=== PATIENT | male | born 1975 | race Caucasian/White ===

== ENCOUNTER 2022-11-27 06:17 | Emergency (ER) | payer BC ==
[2022-11-27 06:30] VITALS: TEMP 97.5
[2022-11-27 06:48] LABS: Absolute Neutrophil Ct (ANC) 3.16 x10^3/uL (1.4-6.9); BASOPHIL % 0.5 % (0.0-0.4); Basophil (Absolute #) 0.03 x10^3/uL (0-0.4); Eosinophil % 2.8 % (0.00-5.0); Eosinophil (Absolute #) 0.16 x10^3/uL (0-0.5); Hematocrit 44.3 % (42-50); Hemoglobin 13.6 g/dL (12.5-18.0); IMMATURE GRAN # 0.02 x10^3u/L (0.00-0.03); IMMATURE GRAN % 0.4 % (0.00-0.4); Lymphocyte (Absolute #) 1.66 x10^3/uL (1.0-4.6); Lymphocytes % 29.4 % (24.0-44.0); Mean Cell Volume 89.5 fL (78-100); Mean Corpuscular Hemoglobin 27.5 pg (26-32); Mean Corpuscular Hgb Concent. 30.7 g/dL (32-36); Mean Platelet Volume 10.6 fL (7.5-11.0); Monocyte (Absolute #) 0.61 x10^3/uL (0.0-1.3); Monocytes % 10.8 % (0.0-12.0); Neutrophil % 56.1 % (36.0-66.0); Platelet Count 200 x10^3/uL (150-450); Red Blood Count 4.95 x10^6/uL (4.1-5.6); Red Cell Distribution Width 15.3 % (11.5-14.0); White Blood Count 5.6 x10^3/uL (4.0-10.5)
[2022-11-27 07:02] LABS: ALBUMIN 4.1 g/dL (3.5-5.0); ALKALINE PHOSPHATASE 83 U/L (38-126); ANION GAP 14.2 MEQ/L (5-15); BLOOD UREA NITROGEN 13 mg/dL (9-20); CHLORIDE 106 mmol/L (98-107); Calcium 8.7 mg/dL (8.4-10.2); Carbon Dioxide 26 mmol/L (22-30); Creatinine 1 0.97 mg/dL (0.66-1.25); EST GLOMERULAR FILTRATION RATE > 60.0 ML/MIN; Glucose 102 mg/dL (74-106); Potassium 3.9 mmol/L (3.5-5.1); SGOT/AST 26 U/L (17-59); SGPT/ALT 27 U/L (0-50); SODIUM 142 mmol/L (137-145)
--- NOTE | 2022-11-27 07:58 | ERPHSYRPT ---
- History of Present Illness Time Seen by Provider: 11/27/22 07:05 Historian: patient Exam Limitations: no limitations Patient Subjective Stated Complaint: pt states "I woke up around 0445 with my L shoulder hurting. I took a nitro at 0503 and it took the pain away. When I had my heart attack, I had muscle pain in between my shoulder blades so I just want to make sure that is not what is wrong" Triage Nursing Assessment: pt ambulatory to bed by self, pt alert and oriented x3, skin pwd, pt c/o 2/10 L shoulder pain when he woke up around 0445. pt took a nitro at 0503 and the pain is now completely resolved. pt has hx of SC in 2014 and has one cardiac stent. Tim Jim is his proofer black and white. pt anxious during triage. Physician History: This is a 47-year-old obese white male patient has a history of hypertension, GERD, hyperlipidemia and coronary artery disease with placement of a coronary artery stent in the past. He is on anticoagulation therapy. His proofer black and white is Dr. Tim Jim. He presents with left shoulder pain that woke the patient up at 445 this morning. He states he also felt warm but did not have a fever. His prior heart attack that prompted a cardiac catheterization with cardiac stent placement presented as severe, sudden pain between his scapulae. He does not have those symptoms today. He was feeling anxious and uneasy and therefore he came in for evaluation. The left shoulder pain completely resolved by the time I evaluated him. He now states he has some localized sensation described as a "poke" left anterior chest wall without radiation. He is not short of breath. He does not have a cough. He has no abdominal pain. Patient saw his proofer black and white last week. Timing/Duration: today Activities at Onset: none Quality: other (Initially left shoulder pain which was localized to the shoulder without radiation. That pain resolved and he has a localized anterior left chest wall sensation of a "poke") Location: other (Left shoulder (resolved) and left anterior chest wall "poke" sensation) Chest Pain Radiation: no radiation Severity of Pain-Max: none Severity of Pain-Current: none Modifying Factors: Improves With: nothing Associated Symptoms: denies symptoms Prior Chest Pain/Cardiac Workup: cardiac cath Nitro Today/Relief: 0.4 mg x 1, complete relief Aspirin Treatment Today: no aspirin today (Patient took his Plavix this morning) Allergies/Adverse Reactions: No Known Drug Allergies Allergy (Verified 11/27/22 06:20) Home Medications: Allopurinol 300 mg [Zyloprim 300 mg] 300 mg PO DAILY 11/27/22 [History] Aspirin 81 gm Chew [Baby Aspirin 81 mg Chew] 81 mg PO DAILY 11/27/22 [History] Atorvastatin Calcium [Lipitor] 80 mg PO HS 11/27/22 [History] Buspirone HCl 5 mg [Buspar 5 mg] 10 mg PO BID 11/27/22 [History] Clopidogrel Bisulfate [Clopidogrel] 75 mg PO DAILY 11/27/22 [History] Metformin HCl 500 mg [Glucophage 500 MG] 500 mg PO BID 11/27/22 [History] Metoprolol Tartrate 25 mg [Lopressor 25MG Tab] 25 mg PO BID 11/27/22 [History] Omeprazole 40 mg PO DAILY 11/27/22 [History] Zolpidem Tartrate 10 mg [Ambien 10 MG] 10 mg PO HS 11/27/22 [History] lisinopriL [Lisinopril] 10 mg PO BID 11/27/22 [History] Hx Tetanus, Diphtheria Vaccination/Date Given: No Hx Influenza Vaccination/Date Given: Yes Hx Pneumococcal Vaccination/Date Given: No Immunizations Up to Date: Yes Travel Risk - International Travel Have you traveled outside of the country in past 3 weeks: No - Coronavirus Screening Are you exhibiting any of the following symptoms?: No Close contact with a COVID-19 positive Pt in past 14-21 Days: No - Vaccine Status Have you recieved a Covid-19 vaccination: Yes [employer] [employer] - Vaccination Dates Date of 2cond Vaccination (if applicable): 2020 - Review of Systems Constitutional: No Symptoms Eyes: No Symptoms Ears, Nose, & Throat: No Symptoms Respiratory: No Symptoms Cardiac: Chest Pain Abdominal/Gastrointestinal: No Symptoms Genitourinary Symptoms: No Symptoms Musculoskeletal: No Symptoms Skin: No Symptoms Neurological: No Symptoms Psychological: No Symptoms Endocrine: No Symptoms Hematologic/Lymphatic: No Symptoms Immunological/Allergic: No Symptoms All Other Systems: Reviewed and Negative - Past Medical History Pertinent Past Medical History: Yes Neurological History: No Pertinent History ENT History: Cataracts Cardiac History: High Cholesterol, Hypertension, Myocardial Infarction (SC) Respiratory History: Sleep Apnea Endocrine Medical History: Diabetes Type II Musculoskeletal History: Fractures GI Medical History: Irritable Bowel, Ulcer History: No Pertinent History Psycho-Social History: Anxiety Other Medical History: wrist fx - Past Surgical History Past Surgical History: Yes Neuro Surgical History: No Pertinent History Cardiac: Cardiac Catheterization, Cardiac Stent Respiratory: No Pertinent History Gastrointestinal: No Pertinent History Genitourinary: No Pertinent History Musculoskeletal: No Pertinent History Male Surgical History: No Pertinent History - Social History Smoking Status: Never smoker Exposure to second hand smoke: No Drug Use: none Patient Lives Alone: Yes - Nursing Vital Signs Nursing Vital Signs: Initial Vital Signs Temperature 97.5 F 11/27/22 06:26 Pulse Rate 62 11/27/22 06:26 Respiratory Rate 21 11/27/22 06:26 Blood Pressure 155/87 11/27/22 06:26 O2 Sat by Pulse Oximetry 98 11/27/22 06:26 Pain Scale Pain Intensity 0 - Physical Exam General Appearance: no apparent distress, alert, anxiety, obese Eye Exam: PERRL/EOMI, eyes nml inspection Ears, Nose, Throat Exam: normal ENT inspection, moist mucous membranes Neck Exam: normal inspection, non-tender, supple, full range of motion Respiratory Exam: normal breath sounds, lungs clear, airway intact, No chest tenderness, No respiratory distress Cardiovascular Exam: regular rate/rhythm, normal heart sounds, normal peripheral pulses Gastrointestinal/Abdomen Exam: soft, normal bowel sounds, No tenderness Rectal Exam: not done Back Exam: normal inspection, normal range of motion, No CVA tenderness, No vertebral tenderness Extremity Exam: normal inspection, normal range of motion, pelvis stable Neurologic Exam: alert, oriented x 3, cooperative, microbiology supervisor II-XII nml as tested, normal mood/affect, nml cerebellar function, nml station & gait, sensation nml Skin Exam: normal color, warm, dry Lymphatic Exam: No adenopathy SpO2 Interpretation: normal SpO2: 98 O2 Delivery: Room Air - Course Nursing assessment & vital signs reviewed: Yes EKG Interpreted by Me: RATE (69), Sinus Rhythm, Left [place] Deviation (Borderline), NORMAL INTERVALS, NORMAL QRS, NORMAL ST-T, Other (No acute ischemic changes on today's twelve-lead EKG.) Ordered Tests: Active Orders 24 hr Category Date Time Status EKG-ER Only STAT Care 11/27/22 06:40 Active IV Insertion STAT Care 11/27/22 06:40 Active CHEST 1 VIEW (PORTABLE) Stat Exams 11/27/22 06:39 Completed CBC W DIFF Stat Lab 11/27/22 06:30 Completed CMP Stat Lab 11/27/22 06:30 Completed TROPONIN Q4H Lab 11/27/22 06:30 Completed TROPONIN Q4H Lab 11/27/22 09:33 Completed TROPONIN Q4H Lab 11/27/22 14:45 Ordered TROPONIN Q4H Lab 11/27/22 18:45 Ordered TROPONIN Q4H Lab 11/27/22 22:45 Ordered Lab/Rad Data: Laboratory Result Diagrams 11/27/22 06:30 11/27/22 06:30 Laboratory Results 11/27/22 11/27/22 11/27/22 Range/Units 09:33 06:30 06:30 WBC (4.0-10.5) x10^3/uL RBC (4.1-5.6) x10^6/uL Hgb (12.5-18.0) g/dL Hct (42-50) % MCV (78-100) fL MCH (26-32) pg MCHC (32-36) g/dL RDW (11.5-14.0) % Plt Count (150-450) x10^3/uL MPV (7.5-11.0) fL Gran % (36.0-66.0) % Immature Gran % (Auto) (0.00-0.4) % Nucleat RBC Rel Count (0.00-0.1) % Eos # (Auto) (0-0.5) x10^3/uL Immature Gran # (Auto) (0.00-0.03) x10^3u/L Absolute Lymphs (auto) (1.0-4.6) x10^3/uL Absolute Monos (auto) (0.0-1.3) x10^3/uL Absolute Nucleated RBC (0.00-0.01) x10^3u/L Lymphocytes % (24.0-44.0) % Monocytes % (0.0-12.0) % Eosinophils % (0.00-5.0) % Basophils % (0.0-0.4) % Absolute Granulocytes (1.4-6.9) x10^3/uL Basophils # (0-0.4) x10^3/uL Sodium 142 (137-145) mmol/L Potassium 3.9 (3.5-5.1) mmol/L Chloride 106 (98-107) mmol/L Carbon Dioxide 26 (22-30) mmol/L Anion Gap 14.2 (5-15) MEQ/L BUN 13 (9-20) mg/dL Creatinine 0.97 (0.66-1.25) mg/dL Estimated GFR > 60.0 ML/MIN Glucose 102 (74-106) mg/dL Calcium 8.7 (8.4-10.2) mg/dL Total Bilirubin 0.70 (0.2-1.3) mg/dL AST 26 (17-59) U/L ALT 27 (0-50) U/L Alkaline Phosphatase 83 (38-126) U/L Troponin I < 0.012 < 0.012 (0.000-0.034) ng/mL Serum Total Protein 7.0 (6.3-8.2) g/dL Albumin 4.1 (3.5-5.0) g/dL 11/27/22 Range/Units 06:30 WBC 5.6 (4.0-10.5) x10^3/uL RBC 4.95 (4.1-5.6) x10^6/uL Hgb 13.6 (12.5-18.0) g/dL Hct 44.3 (42-50) % MCV 89.5 (78-100) fL MCH 27.5 (26-32) pg MCHC 30.7 L (32-36) g/dL RDW 15.3 H (11.5-14.0) % Plt Count 200 (150-450) x10^3/uL MPV 10.6 (7.5-11.0) fL Gran % 56.1 (36.0-66.0) % Immature Gran % (Auto) 0.4 (0.00-0.4) % Nucleat RBC Rel Count 0.0 (0.00-0.1) % Eos # (Auto) 0.16 (0-0.5) x10^3/uL Immature Gran # (Auto) 0.02 (0.00-0.03) x10^3u/L Absolute Lymphs (auto) 1.66 (1.0-4.6) x10^3/uL Absolute Monos (auto) 0.61 (0.0-1.3) x10^3/uL Absolute Nucleated RBC 0.00 (0.00-0.01) x10^3u/L Lymphocytes % 29.4 (24.0-44.0) % Monocytes % 10.8 (0.0-12.0) % Eosinophils % 2.8 (0.00-5.0) % Basophils % 0.5 (0.0-0.4) % Absolute Granulocytes 3.16 (1.4-6.9) x10^3/uL Basophils # 0.03 (0-0.4) x10^3/uL Sodium (137-145) mmol/L Potassium (3.5-5.1) mmol/L Chloride (98-107) mmol/L Carbon Dioxide (22-30) mmol/L Anion Gap (5-15) MEQ/L BUN (9-20) mg/dL Creatinine (0.66-1.25) mg/dL Estimated GFR ML/MIN Glucose (74-106) mg/dL Calcium (8.4-10.2) mg/dL Total Bilirubin (0.2-1.3) mg/dL AST (17-59) U/L ALT (0-50) U/L Alkaline Phosphatase (38-126) U/L Troponin I (0.000-0.034) ng/mL Serum Total Protein (6.3-8.2) g/dL Albumin (3.5-5.0) g/dL - Progress Progress: improved, re-examined Air Movement: good Progress Note: 11/27/22 08:33 Chest x-ray was interpreted by me. There is no evidence of any acute cardiopulmonary process. This patient's medical issue is 1 of moderate complexity. Level of complexity in the work-up performed is based on review patient's past medical history, review of the patient's medication list, review the patient's drug allergy list, history of present illness and physical findings on examination. The work-up in this patient includes a chest x-ray, twelve-lead EKG, troponin level, CBC and CMP. I reviewed and interpreted the work-up performed. There are no acute ca rdiopulmonary processes on chest x-ray. Given the patient's cardiac history, we will repeat a 3-hour troponin. If this level is normal, the patient will be discharged home with instructions to follow-up with his proofer black and white today to make arrangements for follow-up appointment for further evaluation and management. Patient was told to continue his medications as prescribed. 11/27/22 10:45 2 sets of troponin levels are negative. Patient is being discharged to home. He has no chest pain at this time. Blood Culture(s) Obtained: No Antibiotics given: No Counseled pt/family regarding: lab results, diagnosis, need for follow-up, rad results Medical Desision Making - Independent Historian Additional History obtained from: Family - Diagnostic Testing Diagnostic test were ordered, analyzed, and reviewed by me: Yes Radiological Interpretation: Interpreted by me - Risk of complications Low Risk: Low risk of morbidity from additional dx testing or treatment - Departure Departure Disposition: Home Clinical Impression: Shoulder pain Condition: Stable Critical Care Time: No Referrals: KRUNAL ALBRECHT MD [Primary Care Provider] - Follow up/PCP as directed Additional Instructions: Take your medications as prescribed. Call your proofer black and white today to make arrangements for follow-up appointment for further evaluation management.
--- NOTE | 2022-11-27 09:12 | XRAY ---
Indication: Chest pain. Comparison: None Portable apical lordotic chest demonstrates normal heart and lungs. Bony thorax intact.
[2022-11-27 10:47] VITALS: O2SAT 98
[2022-11-27 10:50] VITALS: BP 150/93; PULSE 67; RESP 13
== END 2022-11-27 11:03 | disposition home or self-care (01) ==
LOC: ED 06:17
DX: M25.512 Pain in left shoulder (principal); R07.9 Chest pain, unspecified; I10 Essential (primary) hypertension; E78.5 Hyperlipidemia, unspecified; E11.9 Type 2 diabetes mellitus without complications; Z79.02 Long term (current) use of antithrombotics/antiplatelets; Z79.84 Long term (current) use of oral hypoglycemic drugs; Z79.899 Other long term (current) drug therapy
CPT/HCPCS: 36000; 36415; 71045; 80053; 84484; 85025; 93005; 99284

== ENCOUNTER 2023-04-06 19:43 | Emergency (ER) | payer BC ==
[2023-04-06 20:17] VITALS: TEMP 98.1
[2023-04-06 21:04] LABS: Absolute Neutrophil Ct (ANC) 6.33 x10^3/uL (1.4-6.9); BASOPHIL % 0.6 % (0.0-0.4); Basophil (Absolute #) 0.05 x10^3/uL (0-0.4); Eosinophil % 1.6 % (0.00-5.0); Eosinophil (Absolute #) 0.14 x10^3/uL (0-0.5); Hematocrit 48.2 % (42-50); Hemoglobin 14.7 g/dL (12.5-18.0); IMMATURE GRAN # 0.03 x10^3u/L (0.00-0.03); IMMATURE GRAN % 0.3 % (0.00-0.4); Lymphocyte (Absolute #) 1.55 x10^3/uL (1.0-4.6); Lymphocytes % 17.7 % (24.0-44.0); Mean Cell Volume 90.4 fL (78-100); Mean Corpuscular Hemoglobin 27.6 pg (26-32); Mean Corpuscular Hgb Concent. 30.5 g/dL (32-36); Mean Platelet Volume 10.5 fL (7.5-11.0); Monocyte (Absolute #) 0.66 x10^3/uL (0.0-1.3); Monocytes % 7.5 % (0.0-12.0); Neutrophil % 72.3 % (36.0-66.0); Platelet Count 241 x10^3/uL (150-450); Red Blood Count 5.33 x10^6/uL (4.1-5.6); White Blood Count 8.8 x10^3/uL (4.0-10.5)
[2023-04-06 21:20] LABS: ALBUMIN 4.5 g/dL (3.5-5.0); ANION GAP 13.2 MEQ/L (5-15); BILIRUBIN,TOTAL 0.8 mg/dL (0.2-1.3); Calcium 9.2 mg/dL (8.4-10.2); Creatinine 1 0.85 mg/dL (0.66-1.25); EST GLOMERULAR FILTRATION RATE 107.9 ML/MIN; Potassium 4.1 mmol/L (3.5-5.1); Total Protein 7.8 g/dL (6.3-8.2)
[2023-04-06 21:41] LABS: INFLUENZA A NEGATIVE (NEGATIVE); INFLUENZA B NEGATIVE (NEGATIVE); RESPIRATORY SYNCTIAL VIRUS NEGATIVE (NEGATIVE); SARS-CoV-2 Xpert Express NEGATIVE (NEGATIVE)
--- NOTE | 2023-04-06 21:43 | ERPHSYRPT ---
- History of Present Illness Time Seen by Provider: 04/06/23 19:47 Historian: patient Exam Limitations: no limitations Patient Subjective Stated Complaint: pt states "Since it feels like someone is pushing on my back when I move my L arm. I just feel "whoozy" when I stand up and move around." Triage Nursing Assessment: pt ambulatory to bed by self with steady gait, pt alert and oriented x3, skin pwd, pt c/o intermittent L arm pain and back pain, pt describes back pain where someone is poking in his L upper back, pt denies pain currently or any dizziness at this time. pain only occurs when patient moves his L arm up over his head per patient Physician History: 48-year-old male with history of coronary artery disease status post stenting, hypertension presented in the ER with chief complaint of off-and-on mid upper back for the last 3 to 4 days with radiation to anterior chest mild to moderate dull aching without any significant aggravating or relieving factors. Denies associated shortness of breath or palpitations. Patient reports he feels woozy when he stands up. Also reports some soreness in the left lower chest and left tricep area. Reports pain is different than the time he had CO 6 years ago. Denies any cough congestion, fever or chills. Aspirin Treatment Today: unknown Allergies/Adverse Reactions: No Known Drug Allergies Allergy (Verified 04/06/23 20:14) Home Medications: Allopurinol 300 mg [Zyloprim 300 mg] 300 mg PO DAILY 11/27/22 [History] Aspirin 81 gm Chew [Baby Aspirin 81 mg Chew] 81 mg PO DAILY 11/27/22 [History] Atorvastatin Calcium [Lipitor] 80 mg PO HS 11/27/22 [History] Buspirone HCl 5 mg [Buspar 5 mg] 10 mg PO BID 11/27/22 [History] Clopidogrel Bisulfate [Clopidogrel] 75 mg PO DAILY 11/27/22 [History] Metformin HCl 500 mg [Glucophage 500 MG] 500 mg PO BID 11/27/22 [History] Metoprolol Tartrate 25 mg [Lopressor 25MG Tab] 25 mg PO BID 11/27/22 [H istory] Omeprazole 40 mg PO DAILY 11/27/22 [History] Zolpidem Tartrate 10 mg [Ambien 10 MG] 10 mg PO HS 11/27/22 [History] lisinopriL [Lisinopril] 10 mg PO BID 11/27/22 [History] Hx Tetanus, Diphtheria Vaccination/Date Given: Yes Hx Influenza Vaccination/Date Given: Yes Hx Pneumococcal Vaccination/Date Given: No Immunizations Up to Date: Yes Travel Risk - International Travel Have you traveled outside of the country in past 3 weeks: No - Coronavirus Screening Are you exhibiting any of the following symptoms?: No Close contact with a COVID-19 positive Pt in past 14-21 Days: No - Vaccine Status Have you recieved a Covid-19 vaccination: Yes [employer] In[employer]: 5 Minutes - Vaccination Dates Date of 2cond Vaccination (if applicable): 2020 - Review of Systems Constitutional: No Symptoms Eyes: No Symptoms Ears, Nose, & Throat: No Symptoms Respiratory: No Symptoms Cardiac: Chest Pain Abdominal/Gastrointestinal: No Symptoms Genitourinary Symptoms: No Symptoms Musculoskeletal: Back Pain Skin: No Symptoms Psychological: No Symptoms Endocrine: No Symptoms Hematologic/Lymphatic: No Symptoms - Past Medical History Pertinent Past Medical History: Yes Neurological History: No Pertinent History ENT History: Cataracts Cardiac History: High Cholesterol, Hypertension, Myocardial Infarction (CO) Respiratory History: Sleep Apnea Endocrine Medical History: Diabetes Type II Musculoskeletal History: Fractures GI Medical History: Irritable Bowel, Ulcer History: No Pertinent History Psycho-Social History: Anxiety Other Medical History: wrist fx - Past Surgical History Past Surgical History: Yes Neuro Surgical History: No Pertinent History Cardiac: Cardiac Catheterization, Cardiac Stent Respiratory: No Pertinent History Gastrointestinal: No Pertinent History Genitourinary: No Pertinent History Musculoskeletal: No Pertinent History Male Surgical History: No Pertinent History - Social History Smoking Status: Never smoker Exposure to second hand smoke: No Drug Use: none Patient Lives Alone: Yes - Nursing Vital Signs Nursing Vital Signs: Initial Vital Signs Pulse Rate 71 04/06/23 20:16 Respiratory Rate 18 04/06/23 20:16 Blood Pressure 137/81 04/06/23 20:16 O2 Sat by Pulse Oximetry 94 L 04/06/23 20:16 Pain Scale Pain Intensity 0 - Physical Exam General Appearance: no apparent distress, alert Eye Exam: PERRL/EOMI Ears, Nose, Throat Exam: normal ENT inspection, TMs normal, pharynx normal, moist mucous membranes Neck Exam: normal inspection, non-tender, supple, full range of motion Respiratory Exam: normal breath sounds, lungs clear Cardiovascular Exam: regular rate/rhythm, normal heart sounds Gastrointestinal/Abdomen Exam: soft, normal bowel sounds, No tenderness Back Exam: normal inspection, normal range of motion Extremity Exam: normal inspection, normal range of motion Neurologic Exam: alert, oriented x 3, cooperative, portable power tool repairer II-XII nml as tested Skin Exam: normal color SpO2 Interpretation: normal SpO2: 94 O2 Delivery: Room Air - Course EKG Interpreted by Me: RATE ([id number]), Sinus Alen, NORMAL AXIS, NORMAL INTERVALS, NORMAL QRS Ordered Tests: Active Orders 24 hr Category Date Time Status Irrigation Flume Layer STAT Care 04/06/23 20:47 Completed EKG-ER Only STAT Care 04/06/23 20:46 Completed IV Insertion STAT Care 04/06/23 20:46 Completed Orthostatic Vital Signs STAT Care 04/06/23 20:47 Completed CHEST 1 VIEW (PORTABLE) Routine Exams 04/06/23 21:41 Taken CBC W DIFF Stat Lab 04/06/23 21:00 Completed CMP Stat Lab 04/06/23 21:00 Completed D-DIMER QUANTITATIVE Stat Lab 04/06/23 21:51 Completed NT PRO BNPII Stat Lab 04/06/23 21:00 Completed TROPONIN Q4H Lab 04/06/23 21:00 Completed TROPONIN Stat Lab 04/06/23 23:03 Completed Lab/Rad Data: Laboratory Result Diagrams 04/06/23 21:00 04/06/23 21:00 Laboratory Results 04/06/23 04/06/23 04/06/23 Range/Units 23:03 21:51 21:00 WBC (4.0-10.5) x10^3/uL RBC (4.1-5.6) x10^6/uL Hgb (12.5-18.0) g/dL Hct (42-50) % MCV (78-100) fL MCH (26-32) pg MCHC (32-36) g/dL RDW (11.5-14.0) % Plt Count (150-450) x10^3/uL MPV (7.5-11.0) fL Gran % (36.0-66.0) % Immature Gran % (Auto) (0.00-0.4) % Nucleat RBC Rel Count (0.00-0.1) % Eos # (Auto) (0-0.5) x10^3/uL Immature Gran # (Auto) (0.00-0.03) x10^3u/L Absolute Lymphs (auto) (1.0-4.6) x10^3/uL Absolute Monos (auto) (0.0-1.3) x10^3/uL Absolute Nucleated RBC (0.00-0.01) x10^3u/L Lymphocytes % (24.0-44.0) % Monocytes % (0.0-12.0) % Eosinophils % (0.00-5.0) % Basophils % (0.0-0.4) % Absolute Granulocytes (1.4-6.9) x10^3/uL Basophils # (0-0.4) x10^3/uL D-Dimer < 0.19 (0.0-0.50) mg/L Sodium (137-145) mmol/L Potassium (3.5-5.1) mmol/L Chloride (98-107) mmol/L Carbon Dioxide (22-30) mmol/L Anion Gap (5-15) MEQ/L BUN (9-20) mg/dL Creatinine (0.66-1.25) mg/dL Estimated GFR ML/MIN Glucose (74-106) mg/dL Calcium (8.4-10.2) mg/dL Total Bilirubin (0.2-1.3) mg/dL AST (17-59) U/L ALT (0-50) U/L Alkaline Phosphatase (38-126) U/L Troponin I < 0.012 (0.000-0.034) ng/mL NT-Pro-B Natriuret Pep (<300) pg/mL Serum Total Protein (6.3-8.2) g/dL Albumin (3.5-5.0) g/dL Influenza Type A Ag NEGATIVE (NEGATIVE) Influenza Type B Ag NEGATIVE (NEGATIVE) RSV (PCR) NEGATIVE (NEGATIVE) SARS-CoV-2 (PCR) NEGATIVE (NEGATIVE) 04/06/23 04/06/23 04/06/23 Range/Units 21:00 21:00 21:00 WBC (4.0-10.5) x10^3/uL RBC (4.1-5.6) x10^6/uL Hgb (12.5-18.0) g/dL Hct (42-50) % MCV (78-100) fL MCH (26-32) pg MCHC (32-36) g/dL RDW (11.5-14.0) % Plt Count (150-450) x10^3/uL MPV (7.5-11.0) fL Gran % (36.0-66.0) % Immature Gran % (Auto) (0.00-0.4) % Nucleat RBC Rel Count (0.00-0.1) % Eos # (Auto) (0-0.5) x10^3/uL Immature Gran # (Auto) (0.00-0.03) x10^3u/L Absolute Lymphs (auto) (1.0-4.6) x10^3/uL Absolute Monos (auto) (0.0-1.3) x10^3/uL Absolute Nucleated RBC (0.00-0.01) x10^3u/L Lymphocytes % (24.0-44.0) % Monocytes % (0.0-12.0) % Eosinophils % (0.00-5.0) % Basophils % (0.0-0.4) % Absolute Granulocytes (1.4-6.9) x10^3/uL Basophils # (0-0.4) x10^3/uL D-Dimer (0.0-0.50) mg/L Sodium 139 (137-145) mmol/L Potassium 4.1 (3.5-5.1) mmol/L Chloride 104 (98-107) mmol/L Carbon Dioxide 26 (22-30) mmol/L Anion Gap 13.2 (5-15) MEQ/L BUN 13 (9-20) mg/dL Creatinine 0.85 (0.66-1.25) mg/dL Estimated GFR 107.9 ML/MIN Glucose 98 (74-106) mg/dL Calcium 9.2 (8.4-10.2) mg/dL Total Bilirubin 0.80 (0.2-1.3) mg/dL AST 27 (17-59) U/L ALT 25 (0-50) U/L Alkaline Phosphatase 86 (38-126) U/L Troponin I < 0.012 (0.000-0.034) ng/mL NT-Pro-B Natriuret Pep < 20.0 (<300) pg/mL Serum Total Protein 7.8 (6.3-8.2) g/dL Albumin 4.5 (3.5-5.0) g/dL Influenza Type A Ag (NEGATIVE) Influenza Type B Ag (NEGATIVE) RSV (PCR) (NEGATIVE) SARS-CoV-2 (PCR) (NEGATIVE) 04/06/23 Range/Units 21:00 WBC 8.8 (4.0-10.5) x10^3/uL RBC 5.33 (4.1-5.6) x10^6/uL Hgb 14.7 (12.5-18.0) g/dL Hct 48.2 (42-50) % MCV 90.4 (78-100) fL MCH 27.6 (26-32) pg MCHC 30.5 L (32-36) g/dL RDW 15.0 H (11.5-14.0) % Plt Count 241 (150-450) x10^3/uL MPV 10.5 (7.5-11.0) fL Gran % 72.3 H (36.0-66.0) % Immature Gran % (Auto) 0.3 (0.00-0.4) % Nucleat RBC Rel Count 0.0 (0.00-0.1) % Eos # (Auto) 0.14 (0-0.5) x10^3/uL Immature Gran # (Auto) 0.03 (0.00-0.03) x10^3u/L Absolute Lymphs (auto) 1.55 (1.0-4.6) x10^3/uL Absolute Monos (auto) 0.66 (0.0-1.3) x10^3/uL Absolute Nucleated RBC 0.00 (0.00-0.01) x10^3u/L Lymphocytes % 17.7 L (24.0-44.0) % Monocytes % 7.5 (0.0-12.0) % Eosinophils % 1.6 (0.00-5.0) % Basophils % 0.6 (0.0-0.4) % Absolute Granulocytes 6.33 (1.4-6.9) x10^3/uL Basophils # 0.05 (0-0.4) x10^3/uL D-Dimer (0.0-0.50) mg/L Sodium (137-145) mmol/L Potassium (3.5-5.1) mmol/L Chloride (98-107) mmol/L Carbon Dioxide (22-30) mmol/L Anion Gap (5-15) MEQ/L BUN (9-20) mg/dL Creatinine (0.66-1.25) mg/dL Estimated GFR ML/MIN Glucose (74-106) mg/dL Calcium (8.4-10.2) mg/dL Total Bilirubin (0.2-1.3) mg/dL AST (17-59) U/L ALT (0-50) U/L Alkaline Phosphatase (38-126) U/L Troponin I (0.000-0.034) ng/mL NT-Pro-B Natriuret Pep (<300) pg/mL Serum Total Protein (6.3-8.2) g/dL Albumin (3.5-5.0) g/dL Influenza Type A Ag (NEGATIVE) Influenza Type B Ag (NEGATIVE) RSV (PCR) (NEGATIVE) SARS-CoV-2 (PCR) (NEGATIVE) - Progress Progress: improved, re-examined Air Movement: good Progress Note: 04/06/23 23:44 48-year-old male with history of coronary artery disease status post stenting, hypertension presented in the ER with chief complaint of off-and-on mid upper back for the last 3 to 4 days with radiation to anterior chest mild to moderate dull aching without any significant aggravating or relieving factors. Denies associated shortness of breath or palpitations. Patient reports he feels woozy when he stands up. Also reports some soreness in the left lower chest and left tricep area. Reports pain is different than the time he had CO 6 years ago. Denies any cough congestion, fever or chills. EKG is normal sinus rhythm with no ST elevations. Negative troponins x 2. Given symptomatic treatment, on reevaluation his pain is improved. Chest x-ray negative for any acute cardiopulmonary findings reviewed by me, official report is pending. Lungs bilateral clear to auscultation. No thoracic lumbar spinal tenderness. No rash in the back. Normal white count, fairly unremarkable chemistries. I have recommended CTA to make sure patient does not have any aortic pathology, PE but he declined, discussed the risk of not obtaining CTA which he understands and still adamant about not doing it. Although patient has negative D-dimers. Orthostatics are negative. Negative flu COVID and RSV. With patient's pain going on for last so many days I do not think patient needs admission for further evaluation but recommended outpatient follow-up with primary care and cardiology for reevaluation. Discussed signs symptoms of worsening needing return to ER which he seems understanding. Blood Culture(s) Obtained: No Antibiotics given: No Counseled pt/family regarding: lab results, diagnosis, need for follow-up, rad results Medical Desision Making - Diagnostic Testing Diagnostic test were ordered, analyzed, and reviewed by me: Yes Radiological Interpretation: Interpreted by me, Reviewed by me - Departure Departure Disposition: Home Clinical Impression: Atypical chest pain Condition: Stable Critical Care Time: No Referrals: KRUNAL ALBRECHT MD [Primary Care Provider] - Follow up with PCP 1 day Instructions: Angina (DC), Chest Pain (DC) Additional Instructions: Take Tylenol as needed. Follow-up with your primary care and vocational rehabilitation specialist Dr. Jim for reevaluation early next week. Return to ER for worsening chest pain or if having difficulty breathing, palpitations etc.
[2023-04-06 23:50] VITALS: O2SAT 94
[2023-04-06 23:53] VITALS: BP 122/84; PULSE 55; RESP 13
--- NOTE | 2023-04-07 08:39 | XRAY ---
Indication: Upper back/chest pain. Comparison: November 27, 2022 Portable apical lordotic chest again demonstrates normal heart, lungs, and bony thorax.
== END 2023-04-06 23:57 | disposition home or self-care (01) ==
LOC: ED 19:43
DX: R07.89 Other chest pain (principal); M54.6 Pain in thoracic spine; E78.5 Hyperlipidemia, unspecified; I10 Essential (primary) hypertension; E11.9 Type 2 diabetes mellitus without complications; Z79.84 Long term (current) use of oral hypoglycemic drugs; Z79.02 Long term (current) use of antithrombotics/antiplatelets; Z79.899 Other long term (current) drug therapy
CPT/HCPCS: 0241U; 36000; 36415; 71045; 80053; 83880; 84484; 85025; 85379; 93005; 93041; 99284

== ENCOUNTER 2024-02-23 08:18 | Day surgery (SDC) | payer BC ==
[2024-02-23] MEDS ORDERED: Lactated Ringers 1,000 ML IV ONE (08:37)
[2024-02-23] MEDS: Lactated Ringers 1,000 ML IV SCH (08:41)
--- NOTE | 2024-02-23 08:42 | HP ---
HISTORY: The patient has a history of enlarging lump or cyst on the forehead methodist area and desires removal. Family history of paternal grandfather had colon cancer. PAST MEDICAL HISTORY: Hypertension, [place], heart disease, diabetes, heartburn, gout, hyperlipidemia. PAST SURGICAL HISTORY: Had cataract, lens surgery, has had cardiac cath, had coronary stents, colonoscopy in the past. HOME MEDICATIONS: Nitrostat p.r.n., Lexapro, isosorbide dinitrate, Ambien, multivitamins, atorvastatin, vitamin D2, famotidine, metformin, buspirone, Imodium, aspirin, Plavix, allopurinol, omeprazole, lisinopril and metoprolol. ALLERGIES: No known drug allergies. FAMILY HISTORY: COPD, heart disease, colon cancer and stroke. SOCIAL HISTORY: No smoking or alcohol abuse. REVIEW OF SYSTEMS: Twelve systems reviewed. No chest pain or palpitations. Other systems negative or noncontributory as above and per preadmission questionnaire. PHYSICAL EXAMINATION: VITAL SIGNS: Height 5 feet 8 inches, BMI 36.95. GENERAL: No acute distress. HEENT: Sclerae nonicteric. NECK: No JVD. CHEST: Equal excursion, nonlabored breathing. CARDIOVASCULAR: Regular rate and rhythm. ABDOMEN: Soft. EXTREMITIES: No cyanosis or edema. NEUROLOGIC: Alert and oriented, moving extremities symmetrically. PSYCHIATRIC: Appropriate mood and affect. SKIN: Dry. RECTAL: Deferred until the time of endoscopic exam. IMPRESSION: History of enlarging forehead and methodist area cyst or nodule. [place] would benefit from excision. Risks of bleeding, infection, possibility requiring packing, risks of anesthesia, DVT, or pneumonia. Will proceed as an outpatient. Otherwise, continue medications for gout, hyperlipidemia, diabetes, hypertension and reflux. We will proceed with outpatient excisional biopsy of left forehead and methodist area cyst or nodule as an outpatient.
[2024-02-23 08:51] LABS: Absolute Neutrophil Ct (ANC) 5.35 x10^3/uL (1.78-5.38); BASOPHIL % 0.5 % (0.2-1.2); Basophil (Absolute #) 0.04 x10^3/uL (0.01-0.08); Eosinophil % 1.5 % (0.8-7.0); Eosinophil (Absolute #) 0.12 x10^3/uL (0.04-0.54); Hematocrit 39.4 % (40.1-51.0); Hemoglobin 12.4 g/dL (13.7-17.5); IMMATURE GRAN # 0.05 x10^3u/L (0.001-0.031); IMMATURE GRAN % 0.6 % (0.001-0.429); Lymphocyte (Absolute #) 1.74 x10^3/uL (1.32-3.57); Lymphocytes % 22.1 % (21.8-53.1); Mean Cell Volume 86.8 fL (79.0-92.2); Mean Corpuscular Hemoglobin 27.3 pg (25.7-32.2); Mean Corpuscular Hgb Concent. 31.5 g/dL (32.3-36.5); Monocyte (Absolute #) 0.58 x10^3/uL (0.30-0.82); Monocytes % 7.4 % (5.3-12.2); Neutrophil % 67.9 % (34.0-67.9); Platelet Count 262 x10^3/uL (163-337); Red Blood Count 4.54 x10^6/uL (4.63-6.08); Red Cell Distribution Width 15.9 % (11.6-14.4); White Blood Count 7.9 x10^3/uL (4.23-9.07)
[2024-02-23 09:03] LABS: ANION GAP 15.1 MEQ/L (5-15); Calcium 8.9 mg/dL (8.4-10.2); Creatinine 1 1.06 mg/dL (0.66-1.25); EST GLOMERULAR FILTRATION RATE 86.6 ML/MIN
[2024-02-23] MEDS ORDERED: CEFAZOLIN 2 GM/100 ML NaCl 2 GM/100 ML IVPB IV ONE (09:30)
[2024-02-23] MEDS: CEFAZOLIN 2 GM/100 ML NaCl 2 GM/100 ML IVPB IV SCH (09:31)
[2024-02-23] MEDS ORDERED: BRIDION 200MG/2ML IV ONE (10:42)
[2024-02-23] MEDS ORDERED: ROCURONIUM BROMIDE IV ONE (10:42)
[2024-02-23] MEDS ORDERED: Xylocaine-Mpf 2% 5 Ml Vial ONE (10:42)
[2024-02-23] MEDS ORDERED: TORAdol 30 mg Injection ONE (10:42)
[2024-02-23] MEDS ORDERED: Zofran 4 MG/2 ML VIAL ONE (10:42)
[2024-02-23] MEDS ORDERED: SUBLIMAZE 100 MCG/2 ML ONE (10:42)
[2024-02-23] MEDS ORDERED: Decadron 4 MG INJ ONE (10:42)
[2024-02-23] MEDS ORDERED: DIPRIVAN 200 MG/20 ML IV ONE (10:42)
[2024-02-23] MEDS ORDERED: Sensorcaine 0.25% 10 ML ONE (10:57)
[2024-02-23] MEDS ORDERED: ROBINUL ONE (11:03)
[2024-02-23] MEDS ORDERED: Ephedrine Sulfate 50 MG/ML ONE (11:03)
[2024-02-23 12:21] VITALS: RESP 16
[2024-02-23 12:33] VITALS: BP 137/73; PULSE 70; TEMP 97; O2SAT 93
--- NOTE | 2024-02-24 23:11 | OP ---
SURGERY DATE/TIME: 02/23/2024 [id number] PREOPERATIVE DIAGNOSIS: Enlarging submuscular, subfascial or subcutaneous mass of worship area. POSTOPERATIVE DIAGNOSIS: Subfascial/submuscular lipoma. PROCEDURE: Excisional biopsy of subfascial/submuscular left worship lipoma (approximately 3 cm). SURGEON: Aurelio Rao MD ANESTHESIA: General and 1% lidocaine local anesthetic. ESTIMATED BLOOD LOSS: Minimal. INDICATIONS: As noted above, consent obtained. Patient had a discussion proceeding with local alone or proceeding with anesthetic. Patient decided in the preop holding area to proceed with general given the size of the lesion instead of regional. DESCRIPTION OF PROCEDURE AND FINDINGS: Patient was taken to the operating room. General anesthesia was induced. His scalp was prepped and draped in sterile fashion after official time-out, no disagreement in planned procedure. A longitudinal incision was made overlying the area of dissection and carried down. It was evident this was a subfascial/submuscular tumor requiring going through the muscle. This required undermining the muscle and fascia circumferentially before undermining this 3 cm density, dissected in all directions and then carefully dissected off the underlying deeper fascia. This was about 3 cm in size and passed off for pathology. Good hemostasis was noted, careful monitoring of the eyelid and carefully monitoring on the side. At this point, the muscle and fascia was closed with running 3-0 Vicryl. Skin closed with running 4-0 Vicryl in a subcuticular fashion. Steri-Strips and sterile dressing applied. The patient tolerated the procedure well. Findings discussed with the family out in the waiting area. It was more extensive under the fascia and muscle than had even originally expected. There were no immediate complications.
== END 2024-02-23 12:47 | disposition home or self-care (01) ==
LOC: SDC 08:18
PROVIDERS: ATTEND Surgery
DX: D17.0 Benign lipomatous neoplasm of skin and subcutaneous tissue of head, face and neck (principal); I10 Essential (primary) hypertension; Z80.0 Family history of malignant neoplasm of digestive organs
CPT/HCPCS: 36415; 80048; 85025; 93005; J0690; J1100; J1885; J2405; J2704; J3010